=== PATIENT | female | born 1940 | race Caucasian/White ===

== ENCOUNTER → 2022-11-18 | Outpatient (CLI) | payer MEDICARE ==
--- NOTE | 2022-11-18 17:33 | CT ---
EXAMINATION TYPE: CT chest wo con DATE OF EXAM: 11/18/2022 COMPARISON: None HISTORY: Abnormal weight loss CT DLP: 136 mGycm, Automated exposure control for dose reduction was used. CONTRAST: Performed injected with 0 mL of Isovue 300. TECHNIQUE: Axial images were obtained at 5 mm thick sections. Reconstructed images are reviewed on [employer] computer in the coronal plane. FINDINGS: Portion of the thyroid visualized is normal. Punctate densities in the periphery of the right mid lung. Series 4 image 30. Mild emphysematous borja ges are present diffusely. No enlarged mediastinal or hilar adenopathy is evident. The ascending aorta diameter at the level o f the main pulmonary artery is 3.7 cm. The main pulmonary artery diameter at the bifurcation is 2.8 cm. Mild coronary artery calcification is present. There is a moderate size hiatal hernia present. Limited CT sections are obtained through the upper abdomen. Couple of cysts are within the liver. IMPRESSIONS: 1. No suspicious acute changes. Consider follow-up exam in one year. 2. Moderate size hiatal hernia
== END | disposition home or self-care (01) ==
LOC: RADCTMAIN 14:37
PROVIDERS: ATTEND Family Medicine
DX: K44.9 Diaphragmatic hernia without obstruction or gangrene (principal); R63.4 Abnormal weight loss
CPT/HCPCS: 71250

== ENCOUNTER 2023-08-06 18:54 | Inpatient (IN) | payer MEDICARE ==
--- NOTE | 2023-08-06 20:04 | ED ---
General Adult HPI - General Chief complaint: Weakness Stated complaint: dehydration Time Seen by Provider: 08/06/23 19:00 Source: patient, EMS Mode of arrival: EMS Limitations: no limitations - History of Present Illness Initial comments: Dictation was produced using [employer] dictation software. please excuse any grammatical, word or spelling errors. Chief Complaint: 83-year-old female presents with weakness and hypotension History of Present Illness: Patient is a 83-year-old female she is a poor historian she is brought in by EMS. EMS reports that patient was brought to the ER for chief complaint of weakness. Patient denies such claims. Apparently EMS was called by patient's family member. EMS reports that patient's blood pressure was low en route. The ROS documented in this emergency department record has been reviewed and confirmed by me. Those systems with pertinent positive or negative responses have been documented in the HPI. All other systems are other negative and/or noncontributory. - Related Data Home Medications Medication Instructions Recorded Confirmed Benazepril HCl 40 mg PO DAILY 08/06/23 08/06/23 Cetirizine HCl [Zyrtec] 10 mg PO DAILY 08/06/23 08/06/23 Chlorthalidone [Hygroton] 25 mg PO DAILY 08/06/23 08/06/23 Ergocalciferol [Vitamin D2 (1250 1,250 mcg PO ALMARAZ 08/06/23 08/06/23 Mcg = 75906 Iu)] Levothyroxine Sodium 137 mcg PO DAILY 08/06/23 08/06/23 Montelukast [Singulair] 10 mg PO HS 08/06/23 08/06/23 Rosuvastatin [Crestor] 20 mg PO HS 08/06/23 08/06/23 atenoloL 100 mg PO DAILY 08/06/23 08/06/23 metFORMIN HCL [Glucophage] 850 mg PO BID 08/06/23 08/06/23 Allergies Allergy/AdvReac Type Severity Reaction Status Date / Time No Known Allergies Allergy Unverified 08/06/23 20:53 Review of Systems ROS Statement: Those systems with pertinent positive or pertinent negative responses have been documented in the HPI. ROS Other: All systems not noted in ROS Statement are negative. Past Medical History Past Medical History: Hypertension History of Any Multi-Drug Resistant Organisms: None Reported Past Surgical History: No Surgical Hx Reported Smoking Status: Current every day smoker Past Alcohol Use History: None Reported Past Drug Use History: None Reported General Exam - General Exam Comments Initial Comments: PHYSICAL EXAM: General Impression: Alert and oriented x3, not in acute distress HEENT: Normocephalic atraumatic, extra-ocular movements intact, pupils equal and reactive to light bilaterally, mucous membranes moist. Cardiovascular: Heart regular rate and rhythm Chest: Able to complete full sentences, no retractions, no tachypnea Abdomen: abdomen soft, non-tender, non-distended, no organomegaly Musculoskeletal: Pulses present and equal in all extremities, no peripheral edema Motor: no focal deficits noted Neurological: CN II-XII grossly intact, no focal motor or sensory deficits noted Skin: Intact with no visualized rashes Psych: Normal affect and mood Limitations: no limitations Course Vital Signs 08/06/23 08/06/23 18:59 20:31 Temperature 97.9 F Pulse Rate 64 64 Respiratory 18 18 Rate Blood Pressure 85/53 85/42 O2 Sat by Pulse 96 96 Oximetry EKG Findings - EKG Comments: EKG Findings:: My EKG interpretation: Ventricular rate 66, sinus rhythm, VA interval 153, QRS 67, QTc 4 9. No VA prolongation, no QTC prolongation, no ST or T-wave changes noted. Overall, this EKG is unremarkable Medical Decision Making - Medical Decision Making Was pt. sent in by a medical professional or institution ([facility] Segundo, SUBWAY CAR REPAIRER, urgent care, hospital, or [place] health care facility...) When possible be specific @ -No Did you speak to anyone other than the patient for history (EMS, parent, family, police, friend...)? What history was obtained from this source @ -No Did you review nursing and triage notes (agree or disagree)? Why? @ -I reviewed and agree with nursing and triage notes Were old charts reviewed (outside hosp., previous admission, EMS record, old EKG, old radiological studies, urgent care reports/EKG's, [place] health care facility records)? Report findings @ -No old charts were reviewed Differential Diagnosis (chest pain, altered mental status, abdominal pain women, abdominal pain men, vaginal bleeding, musculoskeletal, weakness, fever, dyspnea, syncope, headache, dizziness, GI bleed, back pain, seizure, CVA, palpatations, mental health)? @ -Differential Weakness: Hypoglycemia, shock, sepsis, hyponatremia, anemia, infection, RI, ETOH, adverse medicine reaction, overdose, stroke, this is not meant to be an all-inclusive list. EKG interpreted by me (3pts min.). @ -See above X-rays interpreted by me (1pt min.). @ -Chest x-ray is nonacute CT interpreted by me (1pt min.). @ -None done U/S interpreted by me (1pt. min.). @ -None done What testing was considered but not performed or refused? (CT, X-rays, U/S, labs)? Why? @ -None What meds were considered but not given or refused? Why? @ -None Did you discuss the management of the patient with other professionals (professionals i.e. , PA, [employer]WAY CAR REPAIRER, lab, RT, psych nurse, social psychologist, cleaner and presser, teacher, staff antisubmarine officer, director of casework)? Give summary @ -Case discussed with hospitalist for admission Was smoking cessation discussed for >3mins.? @ -No Was critical care preformed (if so, how long)? @ -No Were there social determinants of health that impacted care today? How? (Homelessness, low income, unemployed, alcoholism, drug addiction, transportation, low edu. Level, literacy, decrease access to med. care, intermediate, rehab)? @ -No Was there de-escalation of care discussed even if they declined (Discuss DNR or withdrawal of care, Hospice)? DNR status @ -No What co-morbidities impacted this encounter? (DM, HTN, Smoking, COPD, CAD, Cancer, CVA, ARF, Chemo, Hep., AIDS, mental health diagnosis, sleep apnea, morbid obesity)? @ -None Was patient admitted / discharged? Hospital course, mention meds given and route, prescriptions, significant lab abnormalities, going to OR and other pertinent info. @ -83-year-old female well-appearing with no complaints presents to the ER for weakness. Prehospital blood pressure was low. Blood pressure on arrival was 85/53. Rest of vital signs within acceptable limits. Physical examination is unremarkable. Patient no acute distress without any focal findings. Laboratory evaluation obtained. Elevated renal function with BUN of 112 and a creatinine of 2.65. No old labs for comparison. Lactic acidosis of 3.0. Concerning for severe dehydration. CBC and urinalysis negative. Case discussed with hospitalist for admission. Hospitalist requests cardiology consultation Undiagnosed new problem with uncertain prognosis? @ -No Drug Therapy requiring intensive monitoring for toxicity (Heparin, Nitro, Insulin, Cardizem)? @ -No Were any procedures done? @ -No Diagnosis/symptom? Acute, or Chronic, or Acute on Chronic? Uncomplicated (without systemic symptoms) or Complicated (systemic symptoms)? @ -Dehydration Side effects of treatment? @ -No Exacerbation, Progression, or Severe Exacerbation? @ -No Poses a threat to life or bodily function? How? (Chest pain, USA, RI, pneumonia, PE, COPD, DKA, ARF, appy, cholecystitis, CVA, Diverticulitis, Homicidal, Suicidal, threat to staff... and all critical care pts) @ -Yes - Lab Data Result diagrams: 08/06/23 19:57 08/06/23 19:57 Lab Results 08/06/23 08/06/23 08/06/23 Range/Units 19:57 19:57 19:57 WBC 15.5 H (3.8-10.6) k/uL RBC 4.42 (3.80-5.40) m/uL Hgb 13.5 (11.4-16.0) gm/dL Hct 40.5 (34.0-46.0) % MCV 91.7 (80.0-100.0) fL MCH 30.6 (25.0-35.0) pg MCHC 33.4 (31.0-37.0) g/dL RDW 14.2 (11.5-15.5) % Plt Count 255 (150-450) k/uL MPV 8.5 Neutrophils % 85 % Lymphocytes % 7 % Monocytes % 7 % Eosinophils % 0 % Basophils % 0 % Neutrophils # 13.3 H (1.3-7.7) k/uL Lymphocytes # 1.0 (1.0-4.8) k/uL Monocytes # 1.1 H (0-1.0) k/uL Eosinophils # 0.0 (0-0.7) k/uL Basophils # 0.0 (0-0.2) k/uL PT 11.4 (10.0-12.5) sec INR 1.0 (<1.2) APTT 19.8 L (22.0-30.0) sec Sodium 140 (137-145) mmol/L Potassium 4.7 (3.5-5.1) mmol/L Chloride 107 (98-107) mmol/L Carbon Dioxide 21 L (22-30) mmol/L Anion Gap 12 mmol/L BUN 112 H* (7-17) mg/dL Creatinine 2.65 H (0.52-1.04) mg/dL Est GFR (CKD-EPI)AfAm 18 (>60 ml/min/1.73 sqM) Est GFR (CKD-EPI)NonAf 16 (>60 ml/min/1.73 sqM) Glucose 172 H (74-99) mg/dL Plasma Lactic Acid Jhon (0.7-2.0) mmol/L Calcium 8.0 L (8.4-10.2) mg/dL Magnesium 1.6 (1.6-2.3) mg/dL Total Bilirubin 0.9 (0.2-1.3) mg/dL AST 35 (14-36) U/L ALT 31 (4-34) U/L Alkaline Phosphatase 58 (38-126) U/L Total Protein 5.3 L (6.3-8.2) g/dL Albumin 2.8 L (3.5-5.0) g/dL Urine Color Urine Appearance (Clear) Urine pH (5.0-8.0) Ur Specific [place] (1.001-1.035) Urine Protein (Negative) Urine Glucose (UA) (Negative) Urine Ketones (Negative) Urine Blood (Negative) Urine Nitrite (Negative) Urine Bilirubin (Negative) Urine Urobilinogen (<2.0) mg/dL Ur Leukocyte Esterase (Negative) Urine RBC (0-5) /hpf Urine WBC (0-5) /hpf Urine WBC Clumps (None) /hpf Ur Squamous Epith Cells (0-4) /hpf Urine Bacteria (None) /hpf Granular Casts (0) /lpf Urine Mucus (None) /hpf 08/06/23 08/06/23 Range/Units 19:57 20:31 WBC (3.8-10.6) k/uL RBC (3.80-5.40) m/uL Hgb (11.4-16.0) gm/dL Hct (34.0-46.0) % MCV (80.0-100.0) fL MCH (25.0-35.0) pg MCHC (31.0-37.0) g/dL RDW (11.5-15.5) % Plt Count (150-450) k/uL MPV Neutrophils % % Lymphocytes % % Monocytes % % Eosinophils % % Basophils % % Neutrophils # (1.3-7.7) k/uL Lymphocytes # (1.0-4.8) k/uL Monocytes # (0-1.0) k/uL Eosinophils # (0-0.7) k/uL Basophils # (0-0.2) k/uL PT (10.0-12.5) sec INR (<1.2) APTT (22.0-30.0) sec Sodium (137-145) mmol/L Potassium (3.5-5.1) mmol/L Chloride (98-107) mmol/L Carbon Dioxide (22-30) mmol/L Anion Gap mmol/L BUN (7-17) mg/dL Creatinine (0.52-1.04) mg/dL Est GFR (CKD-EPI)AfAm (>60 ml/min/1.73 sqM) Est GFR (CKD-EPI)NonAf (>60 ml/min/1.73 sqM) Glucose (74-99) mg/dL Plasma Lactic Acid Jhon 3.0 H* (0.7-2.0) mmol/L Calcium (8.4-10.2) mg/dL Magnesium (1.6-2.3) mg/dL Total Bilirubin (0.2-1.3) mg/dL AST (14-36) U/L ALT (4-34) U/L Alkaline Phosphatase (38-126) U/L Total Protein (6.3-8.2) g/dL Albumin (3.5-5.0) g/dL Urine Color Yellow Urine Appearance Cloudy H (Clear) Urine pH 5.5 (5.0-8.0) Ur Specific [place] 1.021 (1.001-1.035) Urine Protein 2+ H (Negative) Urine Glucose (UA) Negative (Negative) Urine Ketones Negative (Negative) Urine Blood Moderate H (Negative) Urine Nitrite Negative (Negative) Urine Bilirubin Negative (Negative) Urine Urobilinogen <2.0 (<2.0) mg/dL Ur Leukocyte Esterase Large H (Negative) Urine RBC 7 H (0-5) /hpf Urine WBC 11 H (0-5) /hpf Urine WBC Clumps Few H (None) /hpf Ur Squamous Epith Cells 10 H (0-4) /hpf Urine Bacteria Few H (None) /hpf Granular Casts 18 (0) /lpf Urine Mucus Rare H (None) /hpf Disposition Clinical Impression: Dehydration Disposition: ADMITTED IP TO THIS HOSP Condition: Fair Referrals: Samir Osuna MD [Primary Care Provider] - 1-2 days Decision Time: 21:34
[2023-08-06 20:23] LABS: ALT 31 U/L (4-34); African American GFR (CKD) 18 (>60 ml/min/1.73 sqM); Anion Gap 12 mmol/L; Carbon Dioxide 21 mmol/L (22-30); Chloride 107 mmol/L (98-107); Glucose 172 mg/dL (74-99); Non-African American GFR(CKD) 16 (>60 ml/min/1.73 sqM); Sodium 140 mmol/L (137-145); Total Bilirubin 0.9 mg/dL (0.2-1.3)
[2023-08-06 20:24] LABS: Prothrombin Time 11.4 sec (10.0-12.5)
[2023-08-06 20:32] LABS: AST 35 U/L (14-36); Albumin 2.8 g/dL (3.5-5.0); Alkaline Phosphatase 58 U/L (38-126); Blood Urea Nitrogen 112 mg/dL (7-17); Magnesium 1.6 mg/dL (1.6-2.3); Potassium 4.7 mmol/L (3.5-5.1); Total Protein 5.3 g/dL (6.3-8.2)
[2023-08-06 20:33] LABS: Basophils % (A) 0 %; Eosinophils % (A) 0 %; HCT 40.5 % (34.0-46.0); HGB 13.5 gm/dL (11.4-16.0); Lymphocytes % (A) 7 %; MCH 30.6 pg (25.0-35.0); MCHC 33.4 g/dL (31.0-37.0); MCV 91.7 fL (80.0-100.0); Mean Platelet Volume 8.5; Monocytes # (A) 1.1 k/uL (0-1.0); Monocytes % (A) 7 %; Neutrophils # (A) 13.3 k/uL (1.3-7.7); Neutrophils % (A) 85 %; Platelet Count 255 k/uL (150-450); RBC 4.42 m/uL (3.80-5.40); RDW 14.2 % (11.5-15.5); WBC 15.5 k/uL (3.8-10.6)
[2023-08-06] MEDS: SODIUM CHLORIDE 0.9% 1,000 ML IV STA ×2 (20:38→21:51)
[2023-08-06 20:45] LABS: Partial Thromboplastin Time 19.8 sec (22.0-30.0)
[2023-08-06 20:49] LABS: Appearance,Urine Cloudy (Clear); Bacteria,Urine Few /hpf; Bilirubin,Urine Negative (Negative); Blood,Urine Moderate (Negative); Color,Urine Yellow; Glucose,Urine (UA) Negative (Negative); Granular Casts,Urine 18 /lpf (0); Ketones,Urine Negative (Negative); Leukocyte Esterase,Urine Large (Negative); Mucus,Urine Rare /hpf; Nitrite,Urine Negative (Negative); PH, Urine 5.5 (5.0-8.0); Protein,Urine 2+ (Negative); RBC,Urine 7 /hpf (0-5); Specific Gravity,Urine 1.021 (1.001-1.035); Squamous Epithelial Cell,Urine 10 /hpf (0-4); Urobilinogen,Urine <2.0 mg/dL (<2.0); WBC,Urine 11 /hpf (0-5)
--- NOTE | 2023-08-06 21:23 | XR ---
EXAMINATION TYPE: XR chest 2V DATE OF EXAM: 08/06/2023 9:17 PM CLINICAL INDICATION:Female, 83 years old with history of weakness; [facility] COMPARISON: CT chest 11/18/2022 TECHNIQUE: XR chest 2V Frontal and lateral views of the chest. FINDINGS: Lungs/Pleura: Emphysematous changes of the lungs are identified. No evidence of large effusion or pne umothorax. Subsegmental atelectasis present in the lung bases. Pulmonary vascularity: Unremarkable. Heart/mediastinum: Cardiomediastinal silhouette is unremarkable. Atherosclerotic calcifications are seen in the aorta. Musculoskeletal: No acute osseous pathology. IMPRESSION: 1. No acute process. 2. Emphysematous changes of the lungs.
[2023-08-06] MEDS ORDERED: NALOXONE 0.4 MG/ML 1 ML VIAL IV PRN (21:31)
[2023-08-07] MEDS: SODIUM CHLORIDE 0.9% 1,000 ML IV STA (00:18)
[2023-08-07 04:52] VITALS: TEMP 98.7
[2023-08-07] MEDS: cefTRIAXone IN SWFI 1,000 MG/10 ML SYRINGE IVP STA (07:13)
[2023-08-07] MEDS: SODIUM CHLORIDE 0.9% 1,000 ML IV ONE (07:13)
[2023-08-07] MEDS ORDERED: DEXTROSE 50% SYRINGE 50 ML IVP PRN ×2 (09:14)
[2023-08-07] MEDS: NOREPINEPHRINE 4 MG in SODIUM CHLORIDE 0.9% 250 ML IV SCH (09:26)
[2023-08-07] MEDS: LEVOTHYROXINE 137 MCG TAB PO SCH (09:28)
[2023-08-07] MEDS: SODIUM CHLORIDE 0.9% 1,000 ML IV SCH ×2 (09:30→12:48)
[2023-08-07 10:28] LABS: Glucose,Whole Blood 79 mg/dL (70-110)
--- NOTE | 2023-08-07 11:20 | P.NPCON ---
History of Present Illness - Reason for Consult acute renal failure - History of Present Illness patient is an 83-year-old female who was brought in to the hospital by family due to increased weakness and confusion. Patient has had significantly decreased oral intake over the last 2-3 days. No history of fever or chills nausea or vomiting. It appeared that urine output had decreased. Patient was significantly hypotensive with systolic blood pressure in the 80s. UA is suspicious for UTI although WBCs were noted to be 11 with few WBC clumps. chest x-ray is unremarkable. Patient is maintained on IGNACIO inhibitor's at home. Patient has been started on levo fed as she remained hypotensive. Status post 2 L fluid bolus. A Armstrong catheter is currently being placed. Review of Systems as per HPI Past Medical History Past Medical History: Hypertension History of Any Multi-Drug Resistant Organisms: None Reported Past Surgical History: No Surgical Hx Reported Smoking Status: Current every day smoker Past Alcohol Use History: None Reported Past Drug Use History: None Reported Medications and Allergies Home Medications Medication Instructions Recorded Confirmed Type Benazepril HCl 40 mg PO DAILY 08/06/23 08/06/23 History Cetirizine HCl [Zyrtec] 10 mg PO DAILY 08/06/23 08/06/23 History Chlorthalidone [Hygroton] 25 mg PO DAILY 08/06/23 08/06/23 History Ergocalciferol [Vitamin D2 (1250 1,250 mcg PO ALMARAZ 08/06/23 08/06/23 History Mcg = 44393 Iu)] Levothyroxine Sodium 137 mcg PO DAILY 08/06/23 08/06/23 History Montelukast [Singulair] 10 mg PO HS 08/06/23 08/06/23 History Rosuvastatin [Crestor] 20 mg PO HS 08/06/23 08/06/23 History atenoloL 100 mg PO DAILY 08/06/23 08/06/23 History metFORMIN HCL [Glucophage] 850 mg PO BID 08/06/23 08/06/23 History Allergies Allergy/AdvReac Type Severity Reaction Status Date / Time No Known Allergies Allergy Unverified 08/06/23 20:53 Physical Exam Vitals: Vital Signs Temp Pulse Resp BP Pulse Ox 08/07/23 11:06 71 18 86/51 93 L 08/07/23 10:16 69 18 92/51 93 L 08/07/23 09:22 74 16 87/51 94 L 08/07/23 07:48 94 L 08/07/23 06:49 62 16 89/56 95 08/07/23 06:00 69 18 88/59 94 L 08/07/23 04:08 98.7 F 64 18 83/68 94 L 08/06/23 22:36 64 18 98/50 96 08/06/23 20:31 64 18 85/42 96 08/06/23 18:59 97.9 F 64 18 85/53 96 Intake and Output 08/06/23 08/07/23 08/07/23 22:59 06:59 14:59 Intake Total 76.012 Output Total 30 Balance 46.012 Intake: Intake, IV Titration 76.012 Amount Norepinephrine 4 mg In 76.012 Sodium Chloride 0.9% 250 ml @ 0.03 MCG/KG/MIN 6.74 mls/hr IV .Q24H [facility] Rx#: [id number] Output: Urine 30 Uretheral (Armstrong) 30 Other: Weight 58.967 kg patient is awake, comfortable, no acute distress Examination of the heart S1 and S2 Examination of the lungs bilateral breath sounds are heard Abdomen is soft nontender Examination of lower extremities shows no significant edema RUG MEASURER exam shows patient is moving all 4 extremities. Results - Lab Results Most recent lab results Calcium 8.0 mg/dL (8.4-10.2) L 08/06/23 19:57 Magnesium 1.6 mg/dL (1.6-2.3) 08/06/23 19:57 08/06/23 19:57 08/06/23 19:57 Assessment and Plan Assessment: 1. Acute kidney injury, ATN secondary to hypotension and sepsis.UA shows 2+ protein, moderate blood and 11 WBCs. Check ultrasound of the kidneys 2. Pyuria rule out UTI 3. Hypertension with currently low blood pressure. IGNACIO inhibitors and diuret ics on hold. 4. Dyslipidemia 5. Lactic acidosis 6. Anion gap metabolic acidosis secondary to lactic acidosis and acute kidney injury Plan: continue with IV fluids Repeat labs today Repeat fluid bolus Continue with antibiotics Check ultrasound of the kidneys Continue to hold off on diuretics and IGNACIO inhibitor's. Thank you for the consultation. We will continue to follow the patient with you during her hospitalization.
--- NOTE | 2023-08-07 11:30 | P.CRDCN ---
History of Present Illness History of present illness: HISTORY OF PRESENT ILLNESS: This is a 83-year-old female with a past medical history significant for hypertension, hyperlipidemia, diabetes. Patient does not follow with a statistical programmer analyst. We have been asked to see the patient in consultation for " per hospitalist request". Patient examined at the bedside in the emergency room. Patient states that she was brought to the hospital because her children did not think she was eating or drinking. The patient states she was eating and drink ing okay at home. The patient denies having any chest pain or pressure. She denies any shortness of breath. Patient was found to be hypotensive with a systolic blood pressure in the 80s. Patient is currently receiving her third liter of IV fluid boluses. Blood pressure remains low with a systolic in the 70s80s. DIAGNOSTICS: - EKG reveals sinus mechanism with PVCs. T wave inversions in V4V5. - Chest xray negative for acute process. - Laboratory data: WBC 15.5. Hemoglobin 13.5. Platelet count 255. Sodium 140. Potassium 4.7. BUN 112. Creatinine 2.65. Lactic acid peaked at 4.5 - Current home cardiac medications include atenolol 100 mg daily, chlorthalidone 25 mg daily, Crestor 20 mg at night, benazepril 40 mg daily. - No previous echocardiogram, stress test, or cardiac catheterization available in EMR for review REVIEW OF SYSTEMS: At the time of my exam: CONSTITUTIONAL: Denies fever or chills. HEENT: Denies blurred vision, vision changes, or eye pain. Denies hemoptysis CARDIOVASCULAR: Denies chest pain. Denies orthopnea. Denies PND. Denies palpitations RESPIRATORY: Denies shortness of breath. GASTROINTESTINAL: Denies abdominal pain. Denies nausea or vomiting. HEMATOLOGIC: Denies bleeding disorders. GENITOURINARY: Denies any blood in urine. SKIN: Denies pruitis. Denies rash. PHYSICAL EXAM: VITAL SIGNS: Reviewed. GENERAL: Well-developed in no acute distress. HEENT: Head is normocephalic. Pupils are equal, round. Sclerae anicteric. Mucous membranes of the mouth are moist. Neck supple. No JVD or thyromegaly LUNGS: Respirations even and unlabored. Lungs essentially clear to auscultation bilaterally. HEART: Regular rate and rhythm. S1 and S2 heard. ABDOMEN: Soft. Nondistended. Nontender. EXTREMITIES: Normal range of motion. No clubbing or cyanosis. Peripheral pulses intact. No lower extremity edema NEUROLOGIC: Awake and alert. ASSESSMENT: Altered mental status Generalized weakness Acute kidney injury secondary to hypotension and sepsis Hypotension Urinary tract infection History of hypertension History of hyperlipidemia Diabetes PLAN: Obtain 2D echo to assess cardiac structure and function Trend troponins Resume Lipitor Hold all antihypertensive medications Continue IV fluids at 75 cc an hour Begin Levophed. Titrate to MAP greater than 65. Recommend admission to ICU Further recommendations pending patient course Nurse practitioner note has been reviewed by physician. Signing provider agrees with the documented findings, assessment, and plan of care documented by THREAD DRAWER as a scribe. Past Medical History Past Medical History: Hypertension History of Any Multi-Drug Resistant Organisms: None Reported Past Surgical History: No Surgical Hx Reported Smoking Status: Current every day smoker Past Alcohol Use History: None Reported Past Drug Use History: None Reported Medications and Allergies Home Medications Medication Instructions Recorded Confirmed Type Benazepril HCl 40 mg PO DAILY 08/06/23 08/06/23 History Cetirizine HCl [Zyrtec] 10 mg PO DAILY 08/06/23 08/06/23 History Chlorthalidone [Hygroton] 25 mg PO DAILY 08/06/23 08/06/23 History Ergocalciferol [Vitamin D2 (1250 1,250 mcg PO ALMARAZ 08/06/23 08/06/23 History Mcg = 13175 Iu)] Levothyroxine Sodium 137 mcg PO DAILY 08/06/23 08/06/23 History Montelukast [Singulair] 10 mg PO HS 08/06/23 08/06/23 History Rosuvastatin [Crestor] 20 mg PO HS 08/06/23 08/06/23 History atenoloL 100 mg PO DAILY 08/06/23 08/06/23 History metFORMIN HCL [Glucophage] 850 mg PO BID 08/06/23 08/06/23 History Allergies Allergy/AdvReac Type Severity Reaction Status Date / Time No Known Allergies Allergy Unverified 08/06/23 20:53 Physical Exam Vitals: Vital Signs Temp Pulse Resp BP Pulse Ox 08/07/23 07:48 94 L 08/07/23 06:49 62 16 89/56 95 08/07/23 06:00 69 18 88/59 94 L 08/07/23 04:08 98.7 F 64 18 83/68 94 L 08/06/23 22:36 64 18 98/50 96 08/06/23 20:31 64 18 85/42 96 08/06/23 18:59 97.9 F 64 18 85/53 96 Intake and Output 08/06/23 08/07/23 08/07/23 22:59 06:59 14:59 Other: Weight 58.967 kg Results 08/06/23 19:57 08/06/23 19:57 Cardiac Enzymes 08/06/23 Range/Units 19:57 AST 35 (14-36) U/L Coagulation 08/06/23 Range/Units 19:57 PT 11.4 (10.0-12.5) sec APTT 19.8 L (22.0-30.0) sec CBC 08/06/23 Range/Units 19:57 WBC 15.5 H (3.8-10.6) k/uL RBC 4.42 (3.80-5.40) m/uL Hgb 13.5 (11.4-16.0) gm/dL Hct 40.5 (34.0-46.0) % Plt Count 255 (150-450) k/uL Comprehensive Metabolic Panel 08/06/23 Range/Units 19:57 Sodium 140 (137-145) mmol/L Potassium 4.7 (3.5-5.1) mmol/L Chloride 107 (98-107) mmol/L Carbon Dioxide 21 L (22-30) mmol/L BUN 112 H* (7-17) mg/dL Creatinine 2.65 H (0.52-1.04) mg/dL Glucose 172 H (74-99) mg/dL Calcium 8.0 L (8.4-10.2) mg/dL AST 35 (14-36) U/L ALT 31 (4-34) U/L Alkaline Phosphatase 58 (38-126) U/L Total Protein 5.3 L (6.3-8.2) g/dL Albumin 2.8 L (3.5-5.0) g/dL Current Medications Generic Name Dose Route Start Last Admin Trade Name Freq PRN Reason Stop Dose Admin Naloxone HCl 0.2 mg 08/06/23 21:31 Naloxone 0.4 Mg/Ml 1 Ml Vial IV Q2M PRN Opioid Reversal Intake and Output 08/06/23 08/07/23 08/07/23 22:59 06:59 14:59 Other: Weight 58.967 kg 08/06/23 19:57 08/06/23 19:57
[2023-08-07] MEDS: INSULIN ASPART (NovoLOG) 100 UNIT/ML VIAL SQ SCH (11:55)
[2023-08-07] MEDS: SODIUM CHLORIDE 0.9% 500 ML 500 ML IV ONE (11:57)
--- NOTE | 2023-08-07 12:33 | US ---
EXAMINATION TYPE: US kidneys/renal and bladder DATE OF EXAM: 08/07/2023 COMPARISON: NONE CLINICAL INDICATION: Female, 83 years old with history of chiquis; EXAM MEASUREMENTS: Right Kidney: 8.3 x 3.7 x 3.8 cm Left Kidney: 8.7 x 4.9 x 4.3 cm Right Kidney: no hydronephrosis or masses seen , cortical medullary differentiation maintained. Left Kidney: no hydronephrosis or masses seen , cortical medullary differentiation maintained. Bladder: not distended, garduno catheter There is no evidence for hydronephrosis at this point in time. No nephrolithiasis is seen. No hayde s are identified. The urinary bladder is anechoic. IMPRESSION: 1. No evidence for obstructive uropathy. 2. Garduno catheter in place.
[2023-08-07] MEDS: FUROSEMIDE 10 MG/ML 2 ML VIAL IV ONE (12:46)
[2023-08-07 12:51] LABS: ALT 25 U/L (4-34); AST 27 U/L (14-36); African American GFR (CKD) 17 (>60 ml/min/1.73 sqM); Albumin 2.3 g/dL (3.5-5.0); Alkaline Phosphatase 62 U/L (38-126); Anion Gap 14 mmol/L; Calcium 7.4 mg/dL (8.4-10.2); Carbon Dioxide 18 mmol/L (22-30); Chloride 113 mmol/L (98-107); Glucose 137 mg/dL (74-99); Magnesium 1.5 mg/dL (1.6-2.3); Non-African American GFR(CKD) 15 (>60 ml/min/1.73 sqM); Potassium 3.3 mmol/L (3.5-5.1); Sodium 145 mmol/L (137-145); Total Bilirubin 0.3 mg/dL (0.2-1.3); Total Protein 4.4 g/dL (6.3-8.2)
[2023-08-07 12:58] LABS: Basophils # (A) 0.1 k/uL (0-0.2); Basophils % (A) 1 %; Eosinophils % (A) 0 %; HCT 40.3 % (34.0-46.0); HGB 12.1 gm/dL (11.4-16.0); Hypochromasia Marked; Lymphocytes # (A) 0.7 k/uL (1.0-4.8); Lymphocytes % (A) 5 %; MCH 31.6 pg (25.0-35.0); MCHC 29.9 g/dL (31.0-37.0); Macrocytosis Moderate; Mean Platelet Volume 8.5; Monocytes # (A) 0.6 k/uL (0-1.0); Monocytes % (A) 4 %; Neutrophils % (A) 90 %; Platelet Count 295 k/uL (150-450); RBC 3.82 m/uL (3.80-5.40); RDW 13.9 % (11.5-15.5); WBC 15.5 k/uL (3.8-10.6)
[2023-08-07 13:02] LABS: MCV 105.5 fL (80.0-100.0)
[2023-08-07 13:03] LABS: Blood Urea Nitrogen 133 mg/dL (7-17)
--- NOTE | 2023-08-07 13:24 | XR ---
EXAMINATION TYPE: XR chest 1V portable DATE OF EXAM: 08/07/2023 1:02 PM CLINICAL INDICATION:Female, 83 years old with history of sob; [facility] COMPARISON: None TECHNIQUE: XR chest 1V portable Frontal view of the chest. FINDINGS: Lungs/Pleura: No evidence of focal consolidation or pneumothorax. Blunting of the costophrenic angles is present. Pulmonary vascularity: Pulmonary vascular congestion. Heart/mediastinum: Cardiomediastinal silhouette is enlarged and stable. Musculoskeletal: No acute osseous pathology. IMPRESSION: Cardiomegaly, pulmonary vascular congestion and bilateral pleural effusions. Correlate with BNP for c ongestive heart failure.
[2023-08-07 13:40] VITALS: BP 90/55; PULSE 72; RESP 32
--- NOTE | 2023-08-07 13:54 | P.CNPUL ---
History of Present Illness Consult date: 08/07/23 Requesting physician: Samir Osuna Reason for consult: other (Urosepsis) Chief complaint: Altered mental status History of present illness: This is an 83-year-old female with history of hypertension, diabetes, brought into the ER with mostly acute altered mental status. Patient has not been e ating or drinking well,, she has been noticed to be generally weak. And seems to be more and more confused. Upon evaluation in the ER, patient was noted to be hypotensive. And she was also noted to have evidence of urinary tract infection. Patient received multiple fluid boluses, continue to have low blood pressure, hence norepinephrine will be started, and the patient was supposed to go to the regular medical floor, now she will be admitted to the ICU. I saw the patient in the ER, she was already on norepinephrine at 0.05 mcg/kg/min she received 4 L of fluid boluses, her present IV fluid is 0.9 normal saline running at 75 cc/h. Patient herself is a very poor historian, I believe the patient has underlying dementia, and she is quite confused. She had no idea where she was, she did not know the year, did not know the name of the president. CBC showed leukocytosis with WBC count of 15.5, hemoglobin 12.1., PMNs were 90%. Basic metabolic profile showed elevated sodium of 145, low potassium of 3.3 elevated BUN of 133 creatinine 2.84 troponin was 0.051. Lactic acid 2.4. Urinalysis showed evidence of large leukocyte esterase, there is pyuria and bacteriuria noted. Chest x-ray on admission showed mostly COPD and no acute process. Follow-up chest x-ray post fluid boluses showed mild congestive heart failure with small bilateral pleural effusions and pulmonary vasculature prominence. Renal ultrasound showed no evidence of obstructive uropathy, patient is receiving ceftriaxone. Patient has been seen by cardiology and by nephrology on consultation, echocardiogram is pending. Recommending to trend troponins and to hold all antihypertensive medications. And patient is already on norepinephrine Review of Systems CONSTITUTIONAL:, Patient is a poor historian. Denies any specific complaints. However the patient is confused HEENT: Negative CARDIOVASCULAR: Negative RESPIRATORY: Negative GASTROINTESTINAL: Negative HEMATOLOGIC: Negative GENITOURINARY: Negative SKIN: Negative Psychiatric negative Hematologic: Past Medical History Past Medical History: Hypertension History of Any Multi-Drug Resistant Organisms: None Reported Past Surgical History: No Surgical Hx Reported Smoking Status: Current every day smoker Past Alcohol Use History: None Reported Past Drug Use History: None Reported Medications and Allergies Home Medications Medication Instructions Recorded Confirmed Type Benazepril HCl 40 mg PO DAILY 08/06/23 08/06/23 History Cetirizine HCl [Zyrtec] 10 mg PO DAILY 08/06/23 08/06/23 History Chlorthalidone [Hygroton] 25 mg PO DAILY 08/06/23 08/06/23 History Ergocalciferol [Vitamin D2 (1250 1,250 mcg PO ALMARAZ 08/06/23 08/06/23 History Mcg = 39127 Iu)] Levothyroxine Sodium 137 mcg PO DAILY 08/06/23 08/06/23 History Montelukast [Singulair] 10 mg PO HS 08/06/23 08/06/23 History Rosuvastatin [Crestor] 20 mg PO HS 08/06/23 08/06/23 History atenoloL 100 mg PO DAILY 08/06/23 08/06/23 History metFORMIN HCL [Glucophage] 850 mg PO BID 08/06/23 08/06/23 History Allergies Allergy/AdvReac Type Severity Reaction Status Date / Time No Known Allergies Allergy Unverified 08/06/23 20:53 Physical Exam Vitals: Vital Signs Temp Pulse Resp BP Pulse Ox FiO2 08/07/23 13:11 72 32 H 90/55 97 50 08/07/23 12:42 50 08/07/23 12:27 69 24 113/85 88 L 08/07/23 11:06 71 18 86/51 93 L 08/07/23 10:16 69 18 92/51 93 L 08/07/23 09:22 74 16 87/51 94 L 08/07/23 07:48 94 L 08/07/23 06:49 62 16 89/56 95 08/07/23 06:00 69 18 88/59 94 L 08/07/23 04:08 98.7 F 64 18 83/68 94 L 08/06/23 22:36 64 18 98/50 96 08/06/23 20:31 64 18 85/42 96 08/06/23 18:59 97.9 F 64 18 85/53 96 Intake and Output 08/06/23 08/07/23 08/07/23 22:59 06:59 14:59 Intake Total 65.678 Output Total 30 Balance 35.678 Intake: Intake, IV Titration 65.678 Amount Norepinephrine 4 mg In 65.678 Sodium Chloride 0.9% 250 ml @ 0.03 MCG/KG/MIN 6.74 mls/hr IV .Q24H [facility] Rx#: [id number] Output: Urine 30 Uretheral (Armstrong) 30 Other: Weight 58.967 kg VITAL SIGNS: Reviewed. Patient is on norepinephrine for low blood pressure at 0.05 mcg/kg/min GENERAL: Reveals an 83-year-old female, looks frail and chronically ill. Ext remely dry mucous membranes. HEENT: Head is normocephalic. Pupils are equal, round. Sclerae anicteric. Dry mucous membranes. No JVD. No stridor. LUNGS: Diminished breath sound bilaterally no crackles rhonchi or wheezes symmetrical chest expansion. HEART: Distant S1-S2, no S3 gallop, no murmur. ABDOMEN: Flat soft nontender no megaly no rebound no guarding. EXTREMITIES: No clubbing edema or cyanosis. NEUROLOGIC: Patient is awake, but confused, she has no clue how she ended up in the hospital and where she is presently. Psychiatric: Confused, flat affect. Extremely dry skin, no rashes. Results - Laboratory Findings CBC and BMP: 08/07/23 11:58 08/07/23 11:58 PT/INR, D-dimer PT 11.4 sec (10.0-12.5) 08/06/23 19:57 INR 1.0 (<1.2) 08/06/23 19:57 Abnormal lab findings: Abnormal Labs 08/06/23 08/06/23 08/06/23 19:57 19:57 19:57 WBC 15.5 H MCV MCHC Neutrophils # 13.3 H Lymphocytes # Monocytes # 1.1 H APTT 19.8 L Potassium Chloride Carbon Dioxide 21 L BUN 112 H* Creatinine 2.65 H Glucose 172 H Plasma Lactic Acid Jhon Calcium 8.0 L Magnesium Troponin I Total Protein 5.3 L Albumin 2.8 L Urine Appearance Urine Protein Urine Blood Ur Leukocyte Esterase Urine RBC Urine WBC Urine WBC Clumps Ur Squamous Epith Cells Urine Bacteria Urine Mucus 08/06/23 08/06/23 08/07/23 19:57 20:31 00:30 WBC MCV MCHC Neutrophils # Lymphocytes # Monocytes # APTT Potassium Chloride Carbon Dioxide BUN Creatinine Glucose Plasma Lactic Acid Jhon 3.0 H* 2.3 H* Calcium Magnesium Troponin I Total Protein Albumin Urine Appearance Cloudy H Urine Protein 2+ H Urine Blood Moderate H Ur Leukocyte Esterase Large H Urine RBC 7 H Urine WBC 11 H Urine WBC Clumps Few H Ur Squamous Epith Cells 10 H Urine Bacteria Few H Urine Mucus Rare H 08/07/23 08/07/23 08/07/23 03:28 07:28 11:58 WBC MCV MCHC Neutrophils # Lymphocytes # Monocytes # APTT Potassium Chloride Carbon Dioxide BUN Creatinine Glucose Plasma Lactic Acid Jhon 4.5 H* 2.4 H* Calcium Magnesium Troponin I 0.051 H* Total Protein Albumin Urine Appearance Urine Protein Urine Blood Ur Leukocyte Esterase Urine RBC Urine WBC Urine WBC Clumps Ur Squamous Epith Cells Urine Bacteria Urine Mucus 08/07/23 08/07/23 11:58 11:58 WBC 15.5 H MCV 105.5 H D MCHC 29.9 L Neutrophils # 14.0 H Lymphocytes # 0.7 L Monocytes # APTT Potassium 3.3 L Chloride 113 H Carbon Dioxide 18 L BUN 133 H* Creatinine 2.84 H Glucose 137 H Plasma Lactic Acid Jhon Calcium 7.4 L Magnesium 1.5 L Troponin I Total Protein 4.4 L Albumin 2.3 L Urine Appearance Urine Protein Urine Blood Ur Leukocyte Esterase Urine RBC Urine WBC Urine WBC Clumps Ur Squamous Epith Cells Urine Bacteria Urine Mucus - Diagnostic Findings Chest x-ray: image reviewed (Initial chest x-ray on admission showed no evidence of pulmonary edema or pneumonia, follow-up chest x-ray few hours later showed evidence of bilateral pleural effusions consistent with CHF) Assessment and Plan Assessment: Impression: Altered mental status secondary to acute toxic metabolic encephalopathy Acute sepsis/septic shock possible urosepsis Lactic acidosis secondary to above Acute anion gap metabolic acidosis secondary to above Generalized weakness secondary to sepsis Acute kidney injury with hypotension and sepsis History of benign essential hypertension History of type 2 diabetes Recommendation: Will accept the patient to go to ICU Will recommend continuation of antibiotics/Rocephin Cut down on IV fluid and continue norepinephrine If patient develops worsening shortness of breath may have to gently diurese Consider placing the patient on BiPAP if she develops worsening shortness of breath Will continue to follow. Prognosis is extremely poor and guarded Time with Patient: Greater than 30
--- NOTE | 2023-08-07 15:19 | P.HPIM ---
History of Present Illness H&P Date: 08/07/23 Chief Complaint: Altered mental status This is an 83-year-old female with past medical history significant for hypertension, hyperlipidemia, diabetes mellitus, ongoing nicotine dependence half a pack per day brought into the hospital for increased weakness, change in mental status. her children were concerned that she had not been eating/drinking. Patient states she was not eating or drinking over the last three days as she wasn't hungry. denies chest pain, palpitations or shortness of breath. On admission patient was hypotensive with systolic blood pressure in the 80s, BUN 112, creatinine 2.65, lactic acid 2.3, 4.5, 2.4, repeat pending. received IV fluid resuscitation. Evaluated by cardiology, EKG reviewed, Levophed initiated. Chest x-ray reported nonacute. Afebrile, WBC 15.5, hemoglobin 12.1, hematocrit 40.3, MCV 105.5, platelets 295, sodium 145, potassium 3.3, chloride 113, bicarb 18, BUN 133, creatinine 2.84, glucose 137, magnesium 1.5, troponin 0.051. UA reporting few bacteria few WBC clumps, WBC, large leukocytes, moderate blood. Review of Systems ROS Statement: Those systems with pertinent positive or pertinent negative responses have been documented in the HPI. ROS Other: All systems not noted in ROS Statement are negative. Past Medical History Past Medical History: Hypertension History of Any Multi-Drug Resistant Organisms: None Reported Past Surgical History: No Surgical Hx Reported Smoking Status: Current every day smoker Past Alcohol Use History: None Reported Past Drug Use History: None Reported Medications and Allergies Home Medications Medication Instructions Recorded Confirmed Type Benazepril HCl 40 mg PO DAILY 08/06/23 08/06/23 History Cetirizine HCl [Zyrtec] 10 mg PO DAILY 08/06/23 08/06/23 History Chlorthalidone [Hygroton] 25 mg PO DAILY 08/06/23 08/06/23 History Ergocalciferol [Vitamin D2 (1250 1,250 mcg PO ALMARAZ 08/06/23 08/06/23 History Mcg = 94424 Iu)] Levothyroxine Sodium 137 mcg PO DAILY 08/06/23 08/06/23 History Montelukast [Singulair] 10 mg PO HS 08/06/23 08/06/23 History Rosuvastatin [Crestor] 20 mg PO HS 08/06/23 08/06/23 History atenoloL 100 mg PO DAILY 08/06/23 08/06/23 History metFORMIN HCL [Glucophage] 850 mg PO BID 08/06/23 08/06/23 History Allergies Allergy/AdvReac Type Severity Reaction Status Date / Time No Known Allergies Allergy Unverified 08/06/23 20:53 Physical Exam Vitals: Vital Signs Temp Pulse Resp BP Pulse Ox FiO2 08/07/23 13:11 72 32 H 90/55 97 50 08/07/23 12:42 50 08/07/23 12:27 69 24 113/85 88 L 08/07/23 11:06 71 18 86/51 93 L 08/07/23 10:16 69 18 92/51 93 L 08/07/23 09:22 74 16 87/51 94 L 08/07/23 07:48 94 L 08/07/23 06:49 62 16 89/56 95 08/07/23 06:00 69 18 88/59 94 L 08/07/23 04:08 98.7 F 64 18 83/68 94 L 08/06/23 22:36 64 18 98/50 96 08/06/23 20:31 64 18 85/42 96 08/06/23 18:59 97.9 F 64 18 85/53 96 Intake and Output 08/06/23 08/07/23 08/07/23 22:59 06:59 14:59 Intake Total 65.678 Output Total 30 Balance 35.678 Intake: Intake, IV Titration 65.678 Amount Norepinephrine 4 mg In 65.678 Sodium Chloride 0.9% 250 ml @ 0.03 MCG/KG/MIN 6.74 mls/hr IV .Q24H [facility] Rx#: [id number] Output: Urine 30 Uretheral (Armstrong) 30 Other: Weight 58.967 kg PHYSICAL EXAM: VITAL SIGNS: [As above] GENERAL: Alert and oriented x 2, lying in bed, fatigued , confused , flat affect ,no acute distress HEENT: Normocephalic, conjunctivae normal. eyes normal. NECK: Supple, no JVD. No thyroid enlargement. No LNs CARDIOVASCULAR: S1, S2 regular. No murmur RESPIRATION: Unlabored, equal air entry, clear to auscultation, breath sounds diminished in the bases. No rhonchi or crackles. No bronchial breathing. ABDOMEN: Soft, nontender . No guarding. no masses palpable. No ascites, No hepatosplenomegaly.Bowel sounds heard. LEGS: No edema. no swelling NERVOUS SYSTEM: Cranial N 2-12 grossly normal. No focal deficits. Strength and sensation grossly intact.. Skin: Warm and dry, no rash Results CBC & Chem 7: 08/07/23 11:58 08/07/23 11:58 Labs: Abnormal Lab Results - Last 24 Hours (Table) 08/06/23 08/06/23 08/06/23 Range/Units 19:57 19:57 19:57 WBC 15.5 H (3.8-10.6) k/uL MCV (80.0-100.0) fL MCHC (31.0-37.0) g/dL Neutrophils # 13.3 H (1.3-7.7) k/uL Lymphocytes # (1.0-4.8) k/uL Monocytes # 1.1 H (0-1.0) k/uL APTT 19.8 L (22.0-30.0) sec Potassium (3.5-5.1) mmol/L Chloride (98-107) mmol/L Carbon Dioxide 21 L (22-30) mmol/L BUN 112 H* (7-17) mg/dL Creatinine 2.65 H (0.52-1.04) mg/dL Glucose 172 H (74-99) mg/dL Plasma Lactic Acid Jhon (0.7-2.0) mmol/L Calcium 8.0 L (8.4-10.2) mg/dL Magnesium (1.6-2.3) mg/dL Troponin I (0.000-0.034) ng/mL Total Protein 5.3 L (6.3-8.2) g/dL Albumin 2.8 L (3.5-5.0) g/dL Urine Appearance (Clear) Urine Protein (Negative) Urine Blood (Negative) Ur Leukocyte Esterase (Negative) Urine RBC (0-5) /hpf Urine WBC (0-5) /hpf Urine WBC Clumps (None) /hpf Ur Squamous Epith Cells (0-4) /hpf Urine Bacteria (None) /hpf Urine Mucus (None) /hpf 08/06/23 08/06/23 08/07/23 Range/Units 19:57 20:31 00:30 WBC (3.8-10.6) k/uL MCV (80.0-100.0) fL MCHC (31.0-37.0) g/dL Neutrophils # (1.3-7.7) k/uL Lymphocytes # (1.0-4.8) k/uL Monocytes # (0-1.0) k/uL APTT (22.0-30.0) sec Potassium (3.5-5.1) mmol/L Chloride (98-107) mmol/L Carbon Dioxide (22-30) mmol/L BUN (7-17) mg/dL Creatinine (0.52-1.04) mg/dL Glucose (74-99) mg/dL Plasma Lactic Acid Jhon 3.0 H* 2.3 H* (0.7-2.0) mmol/L Calcium (8.4-10.2) mg/dL Magnesium (1.6-2.3) mg/dL Troponin I (0.000-0.034) ng/mL Total Protein (6.3-8.2) g/dL Albumin (3.5-5.0) g/dL Urine Appearance Cloudy H (Clear) Urine Protein 2+ H (Negative) Urine Blood Moderate H (Negative) Ur Leukocyte Esterase Large H (Negative) Urine RBC 7 H (0-5) /hpf Urine WBC 11 H (0-5) /hpf Urine WBC Clumps Few H (None) /hpf Ur Squamous Epith Cells 10 H (0-4) /hpf Urine Bacteria Few H (None) /hpf Urine Mucus Rare H (None) /hpf 08/07/23 08/07/23 08/07/23 Range/Units 03:28 07:28 11:58 WBC (3.8-10.6) k/uL MCV (80.0-100.0) fL MCHC (31.0-37.0) g/dL Neutrophils # (1.3-7.7) k/uL Lymphocytes # (1.0-4.8) k/uL Monocytes # (0-1.0) k/uL APTT (22.0-30.0) sec Potassium (3.5-5.1) mmol/L Chloride (98-107) mmol/L Carbon Dioxide (22-30) mmol/L BUN (7-17) mg/dL Creatinine (0.52-1.04) mg/dL Glucose (74-99) mg/dL Plasma Lactic Acid Jhon 4.5 H* 2.4 H* (0.7-2.0) mmol/L Calcium (8.4-10.2) mg/dL Magnesium (1.6-2.3) mg/dL Troponin I 0.051 H* (0.000-0.034) ng/mL Total Protein (6.3-8.2) g/dL Albumin (3.5-5.0) g/dL Urine Appearance (Clear) Urine Protein (Negative) Urine Blood (Negative) Ur Leukocyte Esterase (Negative) Urine RBC (0-5) /hpf Urine WBC (0-5) /hpf Urine WBC Clumps (None) /hpf Ur Squamous Epith Cells (0-4) /hpf Urine Bacteria (None) /hpf Urine Mucus (None) /hpf 08/07/23 08/07/23 08/07/23 Range/Units 11:58 11:58 13:11 WBC 15.5 H (3.8-10.6) k/uL MCV 105.5 H D (80.0-100.0) fL MCHC 29.9 L (31.0-37.0) g/dL Neutrophils # 14.0 H (1.3-7.7) k/uL Lymphocytes # 0.7 L (1.0-4.8) k/uL Monocytes # (0-1.0) k/uL APTT (22.0-30.0) sec Potassium 3.3 L (3.5-5.1) mmol/L Chloride 113 H (98-107) mmol/L Carbon Dioxide 18 L (22-30) mmol/L BUN 133 H* (7-17) mg/dL Creatinine 2.84 H (0.52-1.04) mg/dL Glucose 137 H (74-99) mg/dL Plasma Lactic Acid Jhon 6.4 H* (0.7-2.0) mmol/L Calcium 7.4 L (8.4-10.2) mg/dL Magnesium 1.5 L (1.6-2.3) mg/dL Troponin I (0.000-0.034) ng/mL Total Protein 4.4 L (6.3-8.2) g/dL Albumin 2.3 L (3.5-5.0) g/dL Urine Appearance (Clear) Urine Protein (Negative) Urine Blood (Negative) Ur Leukocyte Esterase (Negative) Urine RBC (0-5) /hpf Urine WBC (0-5) /hpf Urine WBC Clumps (None) /hpf Ur Squamous Epith Cells (0-4) /hpf Urine Bacteria (None) /hpf Urine Mucus (None) /hpf Assessment and Plan Assessment: Altered mental status, acute toxic, metabolic encephalopathy, multifactorial Acute sepsis with septic shock, secondary to possibly acute UTI, pressor dependent Lactic acidosis Metabolic acidosis Acute renal failure, ATN secondary to all the above, diuretics and IGNACIO inhibitor on hold. History of hypertension Hyperlipidemia Diabetes mellitus II, A1c pending Ongoing nicotine dependence Plan: Continue on current medication using ,monitoring and symptomatic treatment. IGNACIO inhibitor and diuretics placed on hold. troponin series ordered. awaiting transfer into ICU bed. IV fluids, pressor support. Antibiotics/ceftriaxone continue. nephrology consulted. The impression and plan of care has been dictated as directed. : I performed a history and examination of this patient, discussed the same with the dictator. I agree with the dictator's note ,documented as a scribe. Any additional findings or plans will be noted.
[2023-08-07] MEDS ORDERED: ATORVASTATIN 40 MG TAB PO SCH (21:00)
[2023-08-07] MEDS ORDERED: MONTELUKAST 10 MG TAB PO SCH (21:00)
== END 2023-08-07 13:55 | disposition expired | DRG 871 ==
LOC: EC 18:54 → 3SCARD 21:32 → 2SICU 08-07 09:23
PROVIDERS: ADMIT Family Medicine; ATTEND Family Medicine
PROC: 3E033XZ Introduction of Vasopressor into Peripheral Vein, Percutaneous Approach (ICD-10-PCS; principal; 2023-08-06)
DX: A41.9 Sepsis, unspecified organism (principal); G92.8 Other toxic encephalopathy; R65.21 Severe sepsis with septic shock; N17.0 Acute kidney failure with tubular necrosis; E87.20 Acidosis, unspecified; N39.0 Urinary tract infection, site not specified; T50.2X5A Adverse effect of carbonic-anhydrase inhibitors, benzothiadiazides and other diuretics, initial encounter; T46.4X5A Adverse effect of angiotensin-converting-enzyme inhibitors, initial encounter; E86.0 Dehydration; E78.5 Hyperlipidemia, unspecified; I11.0 Hypertensive heart disease with heart failure; I50.9 Heart failure, unspecified; F03.90 Unspecified dementia, unspecified severity, without behavioral disturbance, psychotic disturbance, mood disturbance, and anxiety; F17.210 Nicotine dependence, cigarettes, uncomplicated; I49.3 Ventricular premature depolarization; X58.XXXA Exposure to other specified factors, initial encounter; Z79.84 Long term (current) use of oral hypoglycemic drugs; Z79.890 Hormone replacement therapy; Z79.899 Other long term (current) drug therapy; Z66 Do not resuscitate; Z51.5 Encounter for palliative care
CPT/HCPCS: 36415; 51702; 71045; 71046; 76770; 80053; 81001; 83605; 83735; 84145; 84484; 85025; 85610; 85730; 87040; 87086; 93005; 94660; 94760; 96361; 96365; 96366; 96375; 99285